=== PATIENT | male | born 1995 | race Caucasian/White ===

== ENCOUNTER 2017-11-10 11:09 | Emergency (ER) | payer SELFPAY ==
[2017-11-10] MEDS ORDERED: Ibuprofen 800 MG TAB ONE (12:32)
[2017-11-10 13:13] LABS: #Basophils 0.1 thou/uL (0.0-0.2); #Lymphocytes 1.6 thou/uL (1.20-3.40); %Basophils 1.3 % (0.0-1.0); %Eosinophils 0.5 % (0.0-10.0); %Lymphocytes 23.6 % (21.0-51.0); %Monocytes 14.4 % (0.0-10.0); %Neutrophils 60.2 % (42.0-75.0); Hemoglobin 16.2 g/dL (14.0-18.0); Mean Corpuscular HGB CONC 33.4 g/dL (32.0-36.0); Mean Corpuscular Hemoglobin 29.6 pg (27.0-31.0); Mean Corpuscular Volume 88.4 fl (80.0-94.0); Platelet Count 204 thou/uL (130-400); RBC Distribution Width 12.1 % (11.5-14.5); Red Blood Cell (RBC) Count 5.49 mill/uL (4.70-6.10); White Blood Cell (WBC) Count 6.6 thou/uL (4.8-10.8)
[2017-11-10 13:38] LABS: ALT (SGPT) 53 U/L (8-55); AST (SGOT) 38 U/L (5-34); Albumin 4.4 g/dL (3.5-5.0); Alkaline Phosphatase 65 U/L (40-150); Anion Gap 12 mmol/L (10-20); BUN (Urea Nitrogen) 7 mg/dL (8.9-20.6); Bilirubin, Total 0.5 mg/dL (0.2-1.2); Calc. Creatinine Clearance 0 mL/min (70-130); Calcium 9.5 mg/dL (7.8-10.44); Carbon Dioxide 27 mmol/L (22-29); Chloride 100 mmol/L (98-107); Estimated GFR-MDRD Greater than 90; Globulin 3.1 g/dL (2.4-3.5); Glucose 114 mg/dL (70-105); Lipase 10 U/L (8-78); Protein, Total 7.5 g/dL (6.0-8.3); Sodium 135 mmol/L (136-145)
== END 2017-11-10 14:00 | disposition home or self-care (01) ==
LOC: ERS 11:09
DX: R50.9 Fever, unspecified (principal); R19.7 Diarrhea, unspecified; F31.9 Bipolar disorder, unspecified
CPT/HCPCS: 36415; 80053; 83690; 85025; 87804; 99283

== ENCOUNTER 2018-01-08 08:28 | Emergency (ER) | payer SELFPAY ==
[2018-01-08 09:08] LABS: #Basophils 0.1 thou/uL (0.0-0.2); #Eosinphils 0.3 thou/uL (0.0-0.7); #Lymphocytes 3.8 thou/uL (1.20-3.40); #Neutrophils 3.5 thou/uL (1.40-6.50); %Eosinophils 3.6 % (0.0-10.0); %Lymphocytes 43.6 % (21.0-51.0); %Monocytes 11.3 % (0.0-10.0); %Neutrophils 40.5 % (42.0-75.0); Hemoglobin 15.8 g/dL (14.0-18.0); Mean Corpuscular HGB CONC 34.2 g/dL (32.0-36.0); Mean Corpuscular Hemoglobin 29.3 pg (27.0-31.0); Mean Corpuscular Volume 85.7 fL (78.0-98.0); Mean Platelet Volume 6.4 fL (7.4-10.4); Platelet Count 255 thou/uL (130-400); RBC Distribution Width 12.4 % (11.5-14.5); Red Blood Cell (RBC) Count 5.39 mill/uL (4.70-6.10); White Blood Cell (WBC) Count 8.6 thou/uL (4.8-10.8)
[2018-01-08 09:29] LABS: Anion Gap 13 mmol/L (10-20); BUN (Urea Nitrogen) 12 mg/dL (8.9-20.6); Calc. Creatinine Clearance 0 mL/min (70-130); Calcium 9.8 mg/dL (7.8-10.44); Carbon Dioxide 26 mmol/L (22-29); Chloride 105 mmol/L (98-107); Estimated GFR-MDRD Greater than 90; Glucose 99 mg/dL (70-105); Magnesium 2.2 mg/dL (1.6-2.6); Potassium 3.8 mmol/L (3.5-5.1); Sodium 140 mmol/L (136-145)
== END 2018-01-08 09:45 | disposition home or self-care (01) ==
LOC: ERS 08:28
DX: R00.2 Palpitations (principal); F31.9 Bipolar disorder, unspecified
CPT/HCPCS: 36415; 80048; 83735; 85025; 93005

== ENCOUNTER 2019-01-17 07:40 | Emergency (ER) | payer SELFPAY ==
[2019-01-17] MEDS ORDERED: Lidocaine 1% PF 5 ML VIAL ONE (07:52)
--- NOTE | 2019-01-17 08:26 | RAD ---
Radiograph left fifth toe 5 views: Attention abraham in billing: Yes, this is a five-view study. DATE: 01/17/2019 Time: 8:34 AM HISTORY: 43-year-old male with foreign body in toe. FINDINGS: There is a long linear metallic foreign body with a portion of its impaled through the lateral soft t issues adjacent to the fifth middle phalanx. It enters dorsally, and the distal portion exits the soft tissues plantar.. It probably does not extend through the edge of the bone. No fracture lucency is visualized. No dislocation. IMPRESSION: 1. Metallic foreign body in soft tissues of left fifth toe. 2. No fracture.
--- NOTE | 2019-01-17 09:09 | RAD ---
Radiograph left fifth toe 3 views: DATE: 01/17/2019 Time: 9:13 AM HISTORY: Status post removal of foreign body in 23-year-old male. COMPARISON: 01/17/2019 at 8:34 AM FINDINGS: The metallic foreign body is no longer present. No subcutaneous emphysema. No fracture or dislocation . IMPRESSION: Successful removal of foreign body.
[2019-01-17] MEDS ORDERED: Bacitracin 1 PK ONE (09:25)
[2019-01-17] MEDS ORDERED: Adacel (T-DAP) 0.5 ML SYRINGE ONE (11:10)
== END 2019-01-17 09:31 | disposition home or self-care (01) ==
LOC: SCSER 07:40
DX: S91.145A Puncture wound with foreign body of left lesser toe(s) without damage to nail, initial encounter (principal); W22.8XXA Striking against or struck by other objects, initial encounter
CPT/HCPCS: 28190; 90471; 90715; J2001